=== PATIENT | female | born 1955 | race Caucasian/White ===

== ENCOUNTER 2018-04-18 21:41 | Emergency (ER) | payer BC ==
--- NOTE | 2018-04-18 22:33 | EDM.PDOC ---
ED HPI GENERAL MEDICAL PROBLEM - General Chief Complaint: Trauma Stated Complaint: FELL DOWN 17 STEPS HURT FINGER Time Seen by Provider: 04/18/18 22:30 - History of Present Illness INITIAL COMMENTS - FREE TEXT/NARRATIVE: 62-year-old female who stumbled down her basement stairs rolling down her side injured her left middle finger she also bumped her shoulder and her left hip. This happened shortly before arrival she is fully ambulatory she has good range of motion with her left shoulder however is a little concerned about her deformed left middle finger. She denies any other injuries associated with this fall she did not hit her head there was no loss of consciousness. Hand Pain Score (Numeric/FACES): 5 - Related Data Allergies Allergy/AdvReac Type Severity Reaction Status Date / Time wheat Allergy Swelling Verified 04/18/18 22:02 Home Meds: Home Meds . [No Known Home Meds] 04/18/18 [History] Past Medical History Oncologic (Cancer) History: Reports: Breast - Past Surgical History Oncologic Surgical History: Reports: Biopsy of Breast, Lumpectomy Other Oncologic Surgeries/Procedures: biospy Nov 2003 Social & Family History - Family History Family Medical History: Noncontributory - Tobacco Use Smoking Status *Q: Never Smoker - Caffeine Use Caffeine Use: Reports: Coffee - Recreational Drug Use Recreational Drug Use: No Review of Systems - Review of Systems Review Of Systems: See Below Constitutional: Reports: No Symptoms Eyes: Reports: No Symptoms Ears: Reports: No Symptoms Nose: Reports: No Symptoms Mouth/Throat: Reports: No Symptoms Respiratory: Reports: No Symptoms Cardiovascular: Reports: No Symptoms GI/Abdominal: Reports: No Symptoms Genitourinary: Reports: No Symptoms Musculoskeletal: Reports: Other Skin: Reports: No Symptoms Neurological: Reports: No Symptoms ED EXAM, GENERAL - Physical Exam Exam: See Below Exam Limited By: No Limitations Throat/Mouth: Normal Gums Head: Atraumatic, Normocephalic Neck: Normal Inspection, Supple, Non-Tender, Full Range of Motion. No: Lymphadenopathy (L), Lymphadenopathy (R), Tender Midline Respiratory/Chest: No Respiratory Distress, Lungs Clear, Normal Breath Sounds Cardiovascular: Regular Rate, Rhythm, No Edema, No Murmur GI/Abdominal: Normal Bowel Sounds, Soft, Non-Tender, Pelvis Stable Back Exam: Normal Inspection. No: CVA Tenderness (L), CVA Tenderness (R), Vertebral Tenderness Extremities: Normal Inspection, Normal Range of Motion, Non-Tender, No Pedal Edema, Other (With the exception of her left middle finger skeletal exam is entirely normal. Left middle finger shows a deformity at the distal proximal phalanx) Neurological: Alert, Oriented, Normal Cognition Psychiatric: Normal Affect, Normal Mood Skin Exam: Warm, Dry, Intact ED TRAUMA PROCEDURES - Joint Reduction Site: Finger (L) Local Anesthesia - Lidocaine (Xylocaine): 1% Plain Local Anesthetic Volume: 2cc Pre-Procedure NV Status: Normal Post-Procedure NV Status: Normal Technique: Other (Longitudinal traction hyperextension and it fell into place) Number of Attempts: 1 Post-Reduction Imaging: Completely Reduced, Acceptably Reduced Joint Reduction Complications: No Progress/Comments: After the procedure the patient was able to flex her digit it was a little locked up initially but this did straighten out in no time she was placed in a slightly flexed aluminum/foam splint. Course - Vital Signs Last Recorded V/S: Last Vital Signs Temp 36.8 C 04/18/18 21:55 Pulse 71 04/18/18 21:55 Resp 18 04/18/18 21:55 BP 170/103 H 04/18/18 22:09 Pulse Ox 98 04/18/18 21:55 - Orders/Labs/Meds Orders: Active Orders 24 hr Category Date Time Status Fingers Third Digit Lt F2 [CR] Routine Exams 04/19/18 Ordered Fingers Third Digit Lt F2 [CR] Stat Exams 04/18/18 22:38 Taken Meds: Medications Discontinued Medications Generic Name Dose Route Start Last Admin Trade Name Evgenyq PRN Reason Stop Dose Admin Lidocaine HCl 10 ml 04/18/18 23:37 04/18/18 23:45 Xylocaine 1% INJECT 04/18/18 23:38 10 ml ONETIME ONE Administration Departure - Departure Time of Disposition: 00:06 Disposition: Home, Self-Care 01 Clinical Impression: Closed dislocation finger, proximal interphalangeal joint, traumatic, Fall (on ) (from) other stairs and steps, initial encounter - Discharge Information Referrals: Julia Nixon [facility] THERM[facility] C[facility]TER [Primary Care Provider] - Forms: ED Department Discharge Additional Instructions: Return to the emergency room with any questions problems worsening symptoms. Follow-up in the clinic on Monday for recheck of your finger. Tylenol as needed for discomfort. Keep elevated as tolerated. Ice might help with the swelling. Wear the splint at all times. Except, May remove finger from the splint several times a day for gentle range of motion. - My Orders Last 24 Hours: My Active Orders 04/18/18 22:38 Fingers Third Digit Lt F2 [CR] Stat 04/19/18 Fingers Third Digit Lt F2 [CR] Routine - Assessment/Plan Last 24 Hours: My Active Orders 04/18/18 22:38 Fingers Third Digit Lt F2 [CR] Stat 04/19/18 Fingers Third Digit Lt F2 [CR] Routine
[2018-04-18] MEDS ORDERED: Lidocaine 1% 10 ML MDV INJECT ONE (23:37)
--- NOTE | 2018-04-19 08:10 | CR ---
Left third finger: Four views centered to the left third finger were obtained. Comparison: No previous exam. PIP joint shows dislocation. Soft tissue swelling is seen. Bony structures are osteopenic. Impression: 1. Dislocated PIP joint with soft tissue swelling. Diagnostic code #3
--- NOTE | 2018-04-19 08:42 | CR ---
Left third finger: Two views of the left third finger were obtained. Comparison: Prior left third finger study performed on the same day (11:06 PM). Previous dislocation has been reduced. Small calcifications are seen next to the DIP joint of the third finger which are old. Soft tissue swelling is noted. No acute bony abnormality is seen. Impression: 1. Previous dislocation has been reduced. 2. Other incidental findings. Diagnostic code #2 MTDD
== END 2018-04-19 00:32 | disposition home or self-care (01) ==
LOC: JD.ED 21:41
DX: S63.283A Dislocation of proximal interphalangeal joint of left middle finger, initial encounter (principal); Z91.018 Allergy to other foods; W10.9XXA Fall (on) (from) unspecified stairs and steps, initial encounter
CPT/HCPCS: 26770; 73140-26-F2; 73140-F2; 99284-25

== ENCOUNTER 2019-03-27 06:26 | Day surgery (SDC) | payer MEDICARE, BC ==
[~2019-03-27 06:26] MED LIST: Lactated Ringers 1,000 ML IV SCH; Lidocaine 1%/Sod Bicarbonate in NS 8.4% 1 ML Syringe IDERM PRN; Sodium Chloride 0.9% 10 ML Syringe FLUSH PRN
--- NOTE | 2019-03-27 07:09 | PCM.PREANE ---
Preanesthetic Assessment - Anesthesia/Transfusion/Family Hx Anesthesia History: Prior Anesthesia Without Reaction Family History of Anesthesia Reaction: No Transfusion History: No Prior Transfusion(s) - Review of Systems General: No Symptoms Pulmonary: No Symptoms Cardiovascular: No Symptoms Gastrointestinal: No Symptoms Neurological: Numbness (left hand) Other: Reports: None - Physical Assessment NPO Status Date: 03/26/19 NPO Status Time: 22:00 Pulse: 73 O2 Sat by Pulse Oximetry: 100 Respiratory Rate: 16 Blood Pressure: 140/87 Temperature: 37.0 C Vital Signs: Last Vital Signs Temp 37.0 C 03/27/19 06:30 Pulse 73 03/27/19 06:30 Resp 16 03/27/19 06:30 BP 140/87 03/27/19 06:30 Pulse Ox 100 03/27/19 06:30 Height: 1.63 m Weight: 43.545 kg ASA Class: 1 Mental Status: Alert & Oriented x3 Airway Class: Mallampati = 1 Dentition: Reports: Normal Dentition Thyro-Mental Finger Breadths: 3 Mouth Opening Finger Breadths: 3 ROM/Head Extension: Full Lungs: Clear to Auscultation, Normal Respiratory Effort Cardiovascular: Regular Rate, Regular Rhythm - Allergies Allergies/Adverse Reactions: Allergies Allergy/AdvReac Type Severity Reaction Status Date / Time No Known Allergies Allergy Verified 03/26/19 14:24 - Blood Blood Available: No Product(s) Available: None - Anesthesia Plan Pre-Op Medication Ordered: None - Acknowledgements Anesthesia Type Planned: MAC Pt an Appropriate Candidate for the Planned Anesthesia: Yes Alternatives and Risks of Anesthesia Discussed w Pt/Guardian: Yes Pt/Guardian Understands and Agrees with Anesthesia Plan: Yes PreAnesthesia Questionnaire HEENT History: Reports: Allergic Rhinitis, Impaired Vision Cardiovascular History: Reports: None Respiratory History: Reports: None Gastrointestinal History: Reports: Irritable Bowel Syndrome Genitourinary History: Reports: None LOOM REPAIRER History: Reports: None Musculoskeletal History: Reports: Osteoporosis Neurological History: Reports: None Psychiatric History: Reports: None Endocrine/Metabolic History: Reports: None Hematologic History: Reports: None Immunologic History: Reports: None Oncologic (Cancer) History: Reports: Breast Dermatologic History: Reports: None - Past Surgical History Head Surgeries/Procedures: Reports: None HEENT Surgical History: Reports: None Cardiovascular Surgical History: Reports: None Respiratory Surgical History: Reports: None GI Surgical History: Reports: None Female Surgical History: Reports: None Male Surgical History: Reports: None Endocrine Surgical History: Reports: None Neurological Surgical History: Reports: None Oncologic Surgical History: Reports: Biopsy of Breast, Lumpectomy Other Oncologic Surgeries/Procedures: biospy Nov 2003 - SUBSTANCE USE Smoking Status *Q: Never Smoker Tobacco Use Within Last Twelve Months: No Second Hand Smoke Exposure: No Days Per Week of Alcohol Use: 1 Number of Drinks Per Day: 0 Total Drinks Per Week: 0 Recreational Drug Use History: No - HOME MEDS Home Medications: Home Meds Alendronate Sodium [Fosamax] 70 mg PO Q7D 03/26/19 [History] Aspirin [Ecotrin] 81 mg PO DAILY 03/26/19 [History] Calcium Carbonate [Calcium] 500 mg PO DAILY 03/26/19 [History] Cholecalciferol (Vitamin D3) [Vitamin D3] 5,000 unit PO DAILY 03/26/19 [History] - CURRENT (IN HOUSE) MEDS Current Meds: Current Medications Lactated Ringer's (Ringers, Lactated) 1,000 mls @ 125 mls/hr IV ASDIRECTED YULIANA Stop: 03/27/19 23:00 Last Admin: 03/27/19 06:45 Dose: 125 mls/hr Lidocaine/Sodium Bicarbonate (Buffered Lidocaine 1% In Ns 8.4%) 0.25 ml IDERM ONETIME PRN PRN Reason: Prior to IV Start Stop: 03/27/19 23:00 Last Admin: 03/27/19 06:45 Dose: 0.25 ml Sodium Chloride (Saline Flush) 10 ml FLUSH ASDIRECTED PRN PRN Reason: Keep Vein Open Stop: 03/27/19 23:00
[2019-03-27] MEDS ORDERED: Propofol 200 MG/20 ML SDV ONE ×2 (07:13→07:34)
[2019-03-27] MEDS ORDERED: Lidocaine 1% 4 ML ONE (07:14)
--- NOTE | 2019-03-27 07:57 | PCM48HPAN ---
Post Anesthesia Note - EVALUATION WITHIN 48HRS OF ANESTHETIC Vital Signs in Normal Range: Yes Patient Participated in Evaluation: Yes Respiratory Function Stable: Yes Airway Patent: Yes Cardiovascular Function Stable: Yes Hydration Status Stable: Yes Pain Control Satisfactory: Yes Nausea and Vomiting Control Satisfactory: Yes Mental Status Recovered: Yes Pulse Rate: 73 Resp Rate: 16 Temperature: 37.0 C Blood Pressure: 140/87 - COMMENTS/OBSERVATIONS Free Text/Narrative:: no anesthesia complications noted
--- NOTE | 2019-03-27 13:42 | OR ---
DATE OF OPERATION: 03/27/2019 SURGEON: Matti Major MD PREOPERATIVE DIAGNOSIS: Screening colonoscopy. POSTOPERATIVE DIAGNOSIS: Screening colonoscopy. OPERATION PERFORMED: Total colonoscopy with snare excision of sigmoid polyp. ANESTHESIA: MAC. SPECIMEN: Sigmoid polyp. INDICATION FOR PROCEDURE: This 63-year-old female presents for screening colonoscopy. She has had a personal history of prior breast cancer. DESCRIPTION OF PROCEDURE: After adequate preparation, a colonoscope was inserted into the rectum. This was passed all the way to the cecum. Photograph of the ileocecal valve was taken. I also confirmed cecal placement by light shining through the right lower quadrant and by palpation. The bowel prep was good. On withdrawal of the scope, the only abnormality noted was a pedunculated polyp about 35 cm from the anal verge. This was in the upper part of the sigmoid colon. A snare was placed around this, clipped off, and retrieved for pathological evaluation. Anal and rectal examination were normal. No other problems were noted during the scope. Air was suctioned from the colon and the scope removed. ESTIMATED BLOOD LOSS: MMODAL /[id number]
== END 2019-03-27 09:35 | disposition home or self-care (01) ==
LOC: JD.SDS 06:26
PROVIDERS: ATTEND Surgery
DX: D12.5 Benign neoplasm of sigmoid colon (principal); M81.0 Age-related osteoporosis without current pathological fracture; J30.9 Allergic rhinitis, unspecified; Z85.3 Personal history of malignant neoplasm of breast; Z79.82 Long term (current) use of aspirin; Z79.899 Other long term (current) drug therapy
CPT/HCPCS: 00812; J2001; J2704; J7120

== ENCOUNTER 2024-02-15 07:14 | Day surgery (SDC) | payer MEDICARE ==
[~2024-02-15 07:14] MED LIST changes: -Lactated Ringers 1,000 ML IV SCH; -Lidocaine 1%/Sod Bicarbonate in NS 8.4% 1 ML Syringe IDERM PRN; +Sodium Chloride 0.9% 10 ML Syringe FLUSH SCH
[2024-02-15] MEDS: Lactated Ringers 1,000 ML IV SCH (07:30)
[2024-02-15] MEDS ORDERED: Propofol 200 MG/20 ML SDV ONE ×2 (07:49→09:28)
[2024-02-15] MEDS ORDERED: Lidocaine 1% 2 ML ONE (07:50)
== END 2024-02-15 11:25 | disposition home or self-care (01) ==
LOC: JD.SDS 07:14
PROVIDERS: ATTEND Student in an Organized Health Care Education/Training Program
DX: Z12.11 Encounter for screening for malignant neoplasm of colon (principal); D12.2 Benign neoplasm of ascending colon; D12.3 Benign neoplasm of transverse colon; D12.4 Benign neoplasm of descending colon; K63.5 Polyp of colon; I10 Essential (primary) hypertension; F41.9 Anxiety disorder, unspecified; Z79.899 Other long term (current) drug therapy
CPT/HCPCS: 45380; 88305; J2704; J7120; 00811; J3490

== ENCOUNTER 2025-03-04 08:50 | Day surgery (SDC) | payer MEDICARE ==
[2025-03-04] MEDS: Lactated Ringers 1,000 ML IV SCH (09:00)
[2025-03-04] MEDS ORDERED: Lidocaine 1% 4 ML ONE (10:20)
[2025-03-04] MEDS ORDERED: propofoL 500 MG/50 ML 50 ML ONE (10:21)
== END 2025-03-04 12:10 | disposition home or self-care (01) ==
LOC: JD.SDS 08:50
PROVIDERS: ATTEND Surgery
DX: Z12.11 Encounter for screening for malignant neoplasm of colon (principal); D12.3 Benign neoplasm of transverse colon; D12.8 Benign neoplasm of rectum; Z86.0100 Personal history of colon polyps, unspecified; I10 Essential (primary) hypertension; F41.9 Anxiety disorder, unspecified; Z79.899 Other long term (current) drug therapy
CPT/HCPCS: 45380; 45381; 45385; J2003; J2704; J7120; 00812; 99100

== ENCOUNTER 2025-04-10 07:44 | Inpatient (IN) | payer MEDICARE ==
[~2025-04-10 07:44] MED LIST changes: -Sodium Chloride 0.9% 10 ML Syringe FLUSH SCH
[2025-04-10] MEDS ORDERED: fentaNYL 100 MCG/2 ML SDV ONE (07:49)
[2025-04-10] MEDS ORDERED: dexmedeTOMIDine HCl 200 MCG/2 ML SDV ONE (07:49)
[2025-04-10] MEDS ORDERED: Ketamine 200 MG/20 ML MDV ONE (07:49)
[2025-04-10] MEDS ORDERED: Propofol 200 MG/20 ML SDV ONE ×2 (07:49→11:03)
[2025-04-10] MEDS ORDERED: Rocuronium 50 MG/5 ML Vial ONE ×2 (07:51→10:06)
[2025-04-10] MEDS: Lactated Ringers 1,000 ML IV SCH ×2 (08:10→14:08)
[2025-04-10] MEDS ORDERED: fentaNYL 100 MCG/2 ML SDV IVPUSH PRN (08:41)
[2025-04-10] MEDS ORDERED: Naloxone 0.4 MG/ML SDV IVPUSH PRN (08:41)
[2025-04-10] MEDS ORDERED: HYDROmorphone 0.5 MG/0.5 ML Syringe IVPUSH PRN ×2 (08:41→11:39)
[2025-04-10] MEDS ORDERED: Ondansetron 4 MG/2 ML SDV IVPUSH PRN (08:41)
[2025-04-10] MEDS ORDERED: cefOXitin 2 GM Vial ONE (08:50)
[2025-04-10] MEDS ORDERED: Dexamethasone 4 MG/ML 5 ML MDV ONE (09:07)
[2025-04-10] MEDS ORDERED: Ondansetron 4 MG/2 ML SDV ONE (09:07)
[2025-04-10] MEDS ORDERED: ePHEDrine 50 MG/ML SDV ONE (09:16)
[2025-04-10] MEDS: EPINEPHrine 1 MG/ML SDV ONE (09:19)
[2025-04-10] MEDS: Bupivacaine 0.5% 30 ML SDV ONE (09:19)
[2025-04-10] MEDS ORDERED: HYDROmorphone 0.5 MG/0.5 ML Syringe ONE ×2 (09:28→10:07)
[2025-04-10] MEDS ORDERED: Sugammadex Sodium 200 MG/2 ML VIAL IV ONE (10:56)
[2025-04-10] MEDS ORDERED: Ondansetron 4 MG Tab.DIS PO PRN (11:39)
[2025-04-10] MEDS ORDERED: oxyCODONE 5 MG Tab PO PRN (11:39)
[2025-04-10] MEDS: Sodium Chloride 0.9% 10 ML Syringe FLUSH SCH (17:20)
[2025-04-10] MEDS: Heparin Sodium 5,000 Units/ML Vial SUBCUT SCH (17:38)
[2025-04-10] MEDS: Acetaminophen 325 MG Tab PO PRN (20:43)
[2025-04-11 04:15] LABS: BASOPHILS PERCENT AUTO 0.1 % (0.0-1.0); EOSINOPHILS PERCENT AUTO 0.1 % (0.0-6.0); HEMOGLOBIN 12.8 gm/dl (12.0-16.0); IMMATURE GRAN ABSOLUTE AUTO 0.05 K/mm3 (0.00-0.05); IMMATURE GRAN PERCENT AUTO 0.3 % (0.0-0.4); LYMPHOCYTES ABSOLUTE AUTO 2.4 K/mm3 (1.0-4.8); LYMPHOCYTES PERCENT AUTO 16.4 % (24.0-44.0); MEAN CORPUSCULAR HEMOGLOBIN 30.7 pg (28.0-32.0); MEAN CORPUSCULAR HGB CONC 33.7 g/dl (32.0-36.0); MEAN CORPUSCULAR VOLUME 91.1 fl (83.0-99.0); MEAN PLATELET VOLUME 9.6 fl (9.4-12.3); MONOCYTES ABSOLUTE AUTO 1.8 K/mm3 (0.0-0.8); MONOCYTES PERCENT AUTO 12.4 % (0.0-8.0); NEUTROPHILS ABSOLUTE AUTO 10.2 K/mm3 (1.8-7.7); NEUTROPHILS PERCENT AUTO 70.7 % (41.0-71.0); PLATELET COUNT,PLT 256 K/mm3 (150-400); RED BLOOD CELL COUNT 4.17 M/mm3 (4.10-5.30); WHITE BLOOD CELL COUNT,WBC 14.47 K/mm3 (3.9-11.3)
[2025-04-11 04:43] LABS: ANION GAP 10.7 (5-15); BUN/CREATININE RATIO 8.8 (14-18); CALCIUM 8.6 mg/dL (8.5-10.1); CREATININE 0.8 mg/dL (0.55-1.02); EST CRCL DRUG DOSING (CG) 42.26 mL/min; POTASSIUM,K 3.7 mEq/L (3.5-5.1)
[2025-04-11 05:12] LABS: SLIDE REVIEW ABNORMAL SMEAR
[2025-04-11] MEDS: amLODIPine 10 MG Tab PO SCH (09:02)
[2025-04-12] MEDS ORDERED: Lactated Ringers 1,000 ML IV ONE (08:35)
== END 2025-04-12 08:36 | disposition home or self-care (01) | DRG 331 ==
LOC: JD.MS 07:44
PROVIDERS: ADMIT Surgery; ATTEND Surgery
PROC: 0DTF0ZZ Resection of Right Large Intestine, Open Approach (ICD-10-PCS; principal; 2025-04-10 09:00)
DX: D12.9 Benign neoplasm of anus and anal canal (principal); J30.9 Allergic rhinitis, unspecified; H54.7 Unspecified visual loss; I10 Essential (primary) hypertension; K58.9 Irritable bowel syndrome, unspecified; M81.0 Age-related osteoporosis without current pathological fracture; F41.9 Anxiety disorder, unspecified; Z98.890 Other specified postprocedural states; Z79.899 Other long term (current) drug therapy
CPT/HCPCS: 36415; 80048; 82947; 85025; A9270-GY; J0171; J0665; J0694; J1100; J1644; J2405; J2704; J3010; J3490; J7120